=== PATIENT | male | born 1945 | race Asian ===

== ENCOUNTER 2019-06-15 03:24 | Inpatient (IN) | payer OTHER ==
[~2019-06-15] VITALS: Ht 167.6 cm; Wt 82.1 kg
[2019-06-15 03:27] VITALS: BP_SYST 139
--- NOTE | 2019-06-15 03:40 | NUR ---
Placed in room 08 . Placed on ekg monitor tech, blood pressure machine and pulse oximeter. To gown for exam. Side rails up. Report given to August MONTERO.
--- NOTE | 2019-06-15 03:43 | NUR ---
Pt AAOx4 ambulated into ED c/o difficulty breathing x 1 week with worsening symptoms today. Pt denies pain at this time. Accucheck 56. 8 oz OJ given. No other injuries/complaints per pt. No other injuries/complaints per pt/noted.
--- NOTE | 2019-06-15 03:53 | NUR ---
ER Dr. Guevara at bedside examining patient.
[2019-06-15] MEDS ORDERED: NITROGLYCERIN 250 ML IV ONE (04:00)
--- NOTE | 2019-06-15 04:09 | NUR ---
Radiology at bedside
--- NOTE | 2019-06-15 04:42 | NUR ---
Lab at bedside
[2019-06-15 04:55] LABS: BASOPHILS # (AUTO) 0.1 K/uL (0.0-0.2); BASOPHILS % (AUTO) 1.4 % (0.0-2.0); EOSINOPHILS # (AUTO) 0.9 K/uL (0.0-0.4); EOSINOPHILS % (AUTO) 13.5 % (0.0-4.0); HEMATOCRIT 26.1 % (36-54); LYMPHOCYTES # (AUTO) 1.2 K/uL (1.0-5.5); LYMPHOCYTES % (AUTO) 19.3 % (20.5-51.5); MEAN CORPUSCULAR HEMOGLOBIN 31 pg (27-31); MEAN CORPUSCULAR HGB CONC 35 % (32-36); MEAN CORPUSCULAR VOLUME 89 fL (79.0-98.0); MONOCYTES # (AUTO) 0.5 K/uL (0.0-1.0); MONOCYTES % (AUTO) 8.3 % (1.7-9.3); NEUTROPHILS # (AUTO) 3.6 K/uL (1.8-7.7); NEUTROPHILS % (AUTO) 57.5 % (40.0-70.0); PLATELET COUNT (AUTO) 181 K/uL (130-430); RED BLOOD CELL COUNT(AUTO) 2.93 MIL/uL (4.2-6.2); RED CELL DISTRIBUTION WIDTH 12.8 % (9.0-15.0); WHITE BLOOD COUNT (AUTO) 6.3 K/uL (4.8-10.8)
[2019-06-15] MEDS ORDERED: SSNOVOLOG SUBCUT (04:59)
[2019-06-15] MEDS ORDERED: VALS40TA12 PO (04:59)
[2019-06-15] MEDS ORDERED: FURO-149 PO (04:59)
[2019-06-15] MEDS ORDERED: CHOL200019 PO (04:59)
[2019-06-15] MEDS ORDERED: MELA3TAB64 PO (04:59)
[2019-06-15] MEDS ORDERED: ATOR10TA68 PO (04:59)
[2019-06-15] MEDS ORDERED: sodium bicarbonate PO (04:59)
[2019-06-15] MEDS ORDERED: ASPI-1153 PO (04:59)
[2019-06-15] MEDS ORDERED: CARV25TA55 PO (04:59)
[2019-06-15] MEDS ORDERED: ALFU10TA19 PO (04:59)
[2019-06-15] MEDS ORDERED: FLUT15.842 NS (04:59)
[2019-06-15] MEDS ORDERED: INSU100V9 SQ (04:59)
--- NOTE | 2019-06-15 05:00 | NUR ---
Medication reconciliation completed with information provided by med list from pt. Any prior medication reconciliation on file was reviewed and corrected.
[2019-06-15 05:09] LABS: ANION GAP 10 (5-15); CHLORIDE 102 mmol/L (98-107); CREATININE 3.53 mg/dL (0.55-1.30); GLUCOSE 73 mg/dL (70-99); POTASSIUM 4.2 mmol/L (3.5-5.1); SODIUM SERUM 135 mmol/L (136-145); UREA NITROGEN, BLOOD 76 mg/dL (8-21)
--- NOTE | 2019-06-15 05:11 | NUR ---
Urinal given to pt.
[2019-06-15 05:15] LABS: ALANINE AMINOTRANSFERASE 21 U/L (12-78); ALBUMIN 3.3 g/dL (3.4-4.8); ASPARTATE AMINOTRANSFERASE 17 U/L (10-37); TOTAL BILIRUBIN 0.3 mg/dL (0.0-1.0)
[2019-06-15] MEDS ORDERED: FUROSEMIDE 40 MG/4 ML VIAL IVP ONE ×2 (05:30→11:00)
--- NOTE | 2019-06-15 05:46 | NUR ---
Lasix 40mg IVP administered. Pt tolerated well. No adverse reactions noted.
--- NOTE | 2019-06-15 05:48 | NUR ---
Care endorsed to August MONTERO
--- NOTE | 2019-06-15 06:44 | NUR ---
CONSULT CALLED: CONSULT FOR DR MORRISON REASON FOR CHF SPOKE WITH APURVA
--- NOTE | 2019-06-15 07:03 | NUR ---
Pt resting in ED bed comfortably. No acute distress at this time
--- NOTE | 2019-06-15 07:24 | NUR ---
CONSULTATION PAGED REASON FOR CONSULTATION:ARF ON CKD WAS CONSULT CALLED?Y PERSON WHO WAS NOTIFIED:MEGAN CONSULTING PHYSICIAN:PASQULAE MORRIS (MIGUEL [employer]OPEZ [employer]) LOOM STARTER SPECIALTY:NEPRHOLOGY LOOM STARTER PHONE NUMBER:[phone] REQUESTING PHYSICIAN:YISEL ANDRADE
--- NOTE | 2019-06-15 07:29 | NUR ---
report recevied from Ranulfo MONTERO. Pt is in stable condition. Waiting for a tele bed
[2019-06-15] MEDS ORDERED: IPRATROPIUM/ALBUTEROL SULFATE 3 ML AMPUL.NEB (DUONEB) INH ONE (07:30)
--- NOTE | 2019-06-15 09:18 | NUR ---
Patient will be admitted to care of Dr. Elder. Admitted to tele unit. Will go to room 117-a. Belongings list completed. Complete and up to date summary report printed. SBAR report to be given at bedside with opportunity for questions. bedside report given. IV is on the RAC 20g, patent and infusing well.
--- NOTE | 2019-06-15 09:30 | NUR ---
admission notes; received pt from [facility]. pt is aaox4, denies pain, no sob this time. pt admitted under dr dainels with dx of CHF. Pt has no resp distress. vitals wnl, no fever. safety precaution in place, educated pt on the use of call light , tv and bed controls. encouraged to call for assist and pain medications.
[2019-06-15 10:07] VITALS: BP_SYST 146
[2019-06-15 12:46] VITALS: BP_SYST 156
[2019-06-15 15:26] LABS: BILIRUBIN,URINE NEGATIVE (NEGATIVE); CLARITY/URINE CLEAR (CLEAR); COLOR,URINE YELLOW (YELLOW); GLUCOSE,URINE NEGATIVE (NEGATIVE); KETONES,URINE NEGATIVE (NEGATIVE); LEUKOCYTE ESTERASE ,URINE NEGATIVE (NEGATIVE); NITRITE, URINE NEGATIVE (NEGATIVE); PH,URINE 6.5 (5.0-8.0); PROTEIN URINE NEGATIVE (NEGATIVE); UROBILINOGEN,URINE 0.2 (0.2-1.0)
[2019-06-15 15:35] LABS: BLOOD, URINE TRACE (NEGATIVE)
[2019-06-15 15:36] LABS: BACTERIA,URINE FEW /HPF (None Seen); RBC,URINE 0-3 /HPF (0-3); WBC,URINE NONE SEEN /HPF (0-3)
[2019-06-15 15:37] LABS: MUCUS,URINE None Seen /LPF (None Seen)
[2019-06-15 16:00] VITALS: BP_SYST 140
[2019-06-15 16:15] VITALS: BP_SYST 156
[2019-06-15] MEDS: IPRATROPIUM/ALBUTEROL SULFATE 3 ML AMPUL.NEB (DUONEB) INH SCH ×2 (16:28→23:58)
[2019-06-15] MEDS: INSULIN LISPRO SLIDING SCALE 100 UNITS/ML VIAL (humaLOG) SUBCUT PRN ×2 (17:35→21:02)
--- NOTE | 2019-06-15 17:44 | NUR ---
pt and significant other, educated on the insulin humalog sliding scale. need further instruction.
--- NOTE | 2019-06-15 19:30 | NUR ---
PT ENDORSED TO NIGHT NURSE EDU, PT IS ON STABLE CONDITION, 24 HR URINE COLLECTION STARTED AT 1200NN. REMINDED PT NOT TO THROW AWAY HIS URINE AND TO JUST CALL THE NURSE SO WE CAN COLLECT IT.
--- NOTE | 2019-06-15 19:40 | NUR ---
ROUNDS PATIENT IN BED, WATCHING TV, VITALS STABLE. DENIES ANY PAIN AND DISCOMFORT AT THIS TIME. ASSESSMENT DONE AND DOCUEMNTED. SEE FLOWSHEET. NEEDS ATTENDED TO. SAFETY MEASURES IN PLACED. CALL LIGHT PLACED WITHIN REACH.
[2019-06-15 20:00] VITALS: BP_SYST 150
[2019-06-15] MEDS: CARVEDILOL 25 MG TABLET (COREG) PO SCH (20:59)
[2019-06-15] MEDS: FUROSEMIDE 40 MG/4 ML VIAL IVP SCH (21:00)
--- NOTE | 2019-06-15 21:13 | NUR ---
MEDICATION DUE MEDICATIONS GIVEN SCHEDULED, TOLERATED WELL. WILL CONTINUE TO MONITOR.
[2019-06-16] VITALS: BP_SYST 147
--- NOTE | 2019-06-16 02:15 | NUR ---
ROUNDS PATIENT ASLEEP, RESPIRATIONS EVEN AND UNLABORED, WILL CONTINUE TO MONITOR.
--- NOTE | 2019-06-16 04:12 | NUR ---
PATIENT RESTING: Patient resting quietly. No acute distress noted. Vital signs within normal range.
--- NOTE | 2019-06-16 06:52 | NUR ---
CLOSING NOTES PATIENT AWAKE, VITALS STABLE, DENIES ANY PAIN AT THIS TIME. ALL NEEDS ATTENDED TO. SAFETY AND FALL MEASURES MAINTAINED. CALL LIGHT PLACED WITHIN REACH.
--- NOTE | 2019-06-16 07:20 | NUR ---
Received patient and report from [facility] shift nurse. Patient in no acute distress. Side rails x 3 up. Call light with in reach. Patient awake, alert, oriented. Denies pain. Breathing even and unlabored on room air. Call light with in reach.
[2019-06-16 07:45] LABS: BASOPHILS # (AUTO) 0.1 K/uL (0.0-0.2); BASOPHILS % (AUTO) 1.3 % (0.0-2.0); EOSINOPHILS # (AUTO) 0.8 K/uL (0.0-0.4); HEMATOCRIT 27.7 % (36-54); HEMOGLOBIN 9.6 g/dL (14.0-18.0); LYMPHOCYTES # (AUTO) 1.3 K/uL (1.0-5.5); LYMPHOCYTES % (AUTO) 21.7 % (20.5-51.5); MEAN CORPUSCULAR HEMOGLOBIN 31 pg (27-31); MEAN CORPUSCULAR HGB CONC 35 % (32-36); MEAN CORPUSCULAR VOLUME 89 fL (79.0-98.0); MONOCYTES # (AUTO) 0.5 K/uL (0.0-1.0); MONOCYTES % (AUTO) 8.7 % (1.7-9.3); NEUTROPHILS # (AUTO) 3.3 K/uL (1.8-7.7); NEUTROPHILS % (AUTO) 54.6 % (40.0-70.0); PLATELET COUNT (AUTO) 196 K/uL (130-430); RED BLOOD CELL COUNT(AUTO) 3.12 MIL/uL (4.2-6.2)
[2019-06-16] MEDS: IPRATROPIUM/ALBUTEROL SULFATE 3 ML AMPUL.NEB (DUONEB) INH SCH (07:46)
[2019-06-16 08:00] VITALS: BP_SYST 144
[2019-06-16 08:02] LABS: ALANINE AMINOTRANSFERASE 18 U/L (12-78); ALBUMIN 3.3 g/dL (3.4-4.8); ANION GAP 9 (5-15); ASPARTATE AMINOTRANSFERASE 18 U/L (10-37); CALCIUM 8.2 mg/dL (8.4-11.0); CHLORIDE 100 mmol/L (98-107); CREATININE 3.63 mg/dL (0.55-1.30); GLUCOSE 117 mg/dL (70-99); POTASSIUM 4.3 mmol/L (3.5-5.1); SODIUM SERUM 133 mmol/L (136-145); THYROID STIMULATING HORMONE 2.26 uIu/mL (0.36-3.74); TOTAL BILIRUBIN 0.6 mg/dL (0.0-1.0); UREA NITROGEN, BLOOD 75 mg/dL (8-21)
[2019-06-16 08:07] LABS: TOTAL IRON BIND. CAPACITY 221 ug/dL (250-450)
[2019-06-16 08:50] LABS: CHOLESTEROL 91 mg/dL (<200); HDL CHOLESTEROL 28 mg/dL (>45); LDL CHOLESTEROL 50 mg/dL (<100); TRIGLYCERIDES 73 mg/dL (30-150)
[2019-06-16] MEDS ORDERED: ATORVASTATIN 10 MG TABLET PO SCH (09:00)
[2019-06-16] MEDS ORDERED: ASPIRIN 81 MG TABLET(ECOTRIN) PO SCH (09:00)
[2019-06-16 09:32] LABS: EOSINOPHILS % (AUTO) 13.7 % (0.0-4.0)
[2019-06-16] MEDS: FUROSEMIDE 40 MG/4 ML VIAL IVP SCH (09:35)
[2019-06-16] MEDS: CARVEDILOL 25 MG TABLET (COREG) PO SCH (09:37)
[2019-06-16 12:00] VITALS: BP_SYST 145
[2019-06-16] MEDS: INSULIN LISPRO SLIDING SCALE 100 UNITS/ML VIAL (humaLOG) SUBCUT PRN (13:18)
--- NOTE | 2019-06-16 15:06 | NUR ---
CHF protocol: Patient is admitted with CHF and will be DC home today. He has appointment with his PCP, Dr.Esther Christianson, on at 08.30 AM.
[2019-06-16 15:16] VITALS: BP_SYST 145
--- NOTE | 2019-06-16 15:51 | NUR ---
Patient left the facility at 1545 with after receiving discharge instructions and summary. Went over medication reconciliation and belongings list assessed and verified with patient. Patient signed authorization for use or disclosure of health information and discharge instructions and summary with copies given. Patient stated thank you for the care given. Removed quality assurance monitor body and IV insertion. Patient stable, in no acute distress. Denies pain. Breathing even and unlabored. Patient left to go home in private auto.
[2019-06-16 17:16] LABS: CREATININE,URINE 34.3 MG/DL (30-125)
[2019-06-18 08:06] LABS: FOLATE (FOLIC ACID) 12.1 ng/mL (>3.0)
== END 2019-06-16 15:51 | disposition home or self-care (01) | DRG 291 ==
LOC: EDBD 03:24 → SED 03:24 → STU 05:25
PROVIDERS: ADMIT Internal Medicine; ATTEND Internal Medicine
DX: I13.0 Hypertensive heart and chronic kidney disease with heart failure and stage 1 through stage 4 chronic kidney disease, or unspecified chronic kidney disease (principal); N17.0 Acute kidney failure with tubular necrosis; N18.4 Chronic kidney disease, stage 4 (severe); J44.0 Chronic obstructive pulmonary disease with (acute) lower respiratory infection; J20.9 Acute bronchitis, unspecified; E11.22 Type 2 diabetes mellitus with diabetic chronic kidney disease; N40.0 Benign prostatic hyperplasia without lower urinary tract symptoms; D64.9 Anemia, unspecified; I50.9 Heart failure, unspecified; E78.5 Hyperlipidemia, unspecified; Z87.891 Personal history of nicotine dependence; Z79.899 Other long term (current) drug therapy; Z79.82 Long term (current) use of aspirin
CPT/HCPCS: 36415; 71045; 76770; 80053; 80061; 81000-TC; 82570; 82570-TC; 82607; 82746; 82962; 83540-TC; 83550-TC; 83880; 84443-TC; 84484; 85025; 87081; 93005; 93306; 94640; 96374; 99285; G0378; J1940; J7620